=== PATIENT | female | born 1940 | race Caucasian/White ===

== ENCOUNTER 2018-06-16 19:25 | Emergency (ER) | payer OTHER ==
[2018-06-16 19:32] VITALS: TEMP 97.8; BMI 25.7
--- NOTE | 2018-06-16 20:08 | PDOC ---
Rapid Medical Evaluation Chief Complaint: Blood Pressure Problem Time Seen by Provider: 06/16/18 20:06 Medical Evaluation: Allergies Allergy/AdvReac Type Severity Reaction Status Date / Time No Known Allergies Allergy Verified 06/16/18 19:28 Vital Signs Temp Pulse Resp BP Pulse Ox 97.8 F 72 18 235/89 H 98 06/16/18 19:28 06/16/18 19:28 06/16/18 19:28 06/16/18 19:28 06/16/18 19:28 06/16/18 20:06 I have performed a brief in-person evaluation of this patient. The patient presents with a chief complaint of: elevated blood pressure today. Patient states stopped at doctor's office to have b/p checked Reports no symptoms today. Denies dizziness, shortness of breath or chest pain Pertinent physical exam findings: NAD even and unlabored breathing no pedal edema heart s1s2 I have ordered the following: ekg, iv acces, labs The patient will proceed to the ED for further evaluation. Discharge Disposition - Diagnosis Elevated blood pressure reading - Discharge Dispostion Disposition: HOME Condition at time of disposition: Good - Referrals Referrals: Lorena Oakley MD [Primary Care Provider] - - Patient Instructions - Post Discharge Activity
--- NOTE | 2018-06-16 20:21 | PDOC ---
History of Present Illness - General Chief Complaint: Blood Pressure Problem Stated Complaint: HIGH BLOOD PRESURE Time Seen by Provider: 06/16/18 20:06 History Source: Patient Exam Limitations: No Limitations - History of Present Illness Initial Comments: Pt is a 77 yo F, with PMH of hypothyroidism and HLD, who is presenting from her PCP for high blood pressure. Pt states she went to her PCP office for follow-up of her BP, when it was found to be 220s/80s. Pt has had BP elevated to 170s/80s over the prior few weeks, when she went to her PCP for a UTI, so she went to his office today to have it rechecked. She was not started on any antihypertensive medicine. Pt was treated for the UTI with 7 days of antibiotics , and she says the symptoms improved. Pt has no current complaints at this time. Pt denies any recent fevers/chills, headache, vision changes, syncope, chest pain, palpitations, SOB, nausea/vomiting, abdominal pain, urinary symptoms , diarrhea/constipation, or leg swelling. Social: Pt denies any cigarette, alcohol, or drug use. Pt denies any recent travel or sick contacts. Surgical: SBO repair. Family: no relevant history. 06/19/18 23:46 Past History - Past Medical History Allergies/Adverse Reactions: Allergies Allergy/AdvReac Type Severity Reaction Status Date / Time No Known Allergies Allergy Verified 06/16/18 19:28 Home Medications: Ambulatory Orders Hydrochlorothiazide 12.5 mg PO DAILY 5 Days #5 tablet 06/16/18 COPD: No Hypercholesterolemia: Yes - Surgical History GI Surgery: Yes - Suicide/Smoking/Psychosocial Hx Smoking History: Never smoked *Physical Exam - Vital Signs Last Vital Signs Temp Pulse Resp BP Pulse Ox 97.8 F 68 18 226/85 H 98 06/16/18 19:28 06/16/18 20:06 06/16/18 19:28 06/16/18 20:06 06/16/18 19:28 - Physical Exam Comments: Pt afebrile, HTN on arrival (220/82 RUE, 200/89 LUE), HR in 60s. Pt in NAD, normal body habitus. PE showed pt alert and oriented. advanced developer generally intact, muscular strength and sensation intact. Eyes PERRLA, EOMI. Oropharynx without erythema or exudates, no LAD b/l. No nasal congestion, hearing intact. Clear heart sounds, S1/S2, no JVD, b/l pedal edema, or heart murmur. Clear lung sounds , no respiratory distress, wheezes, crackles, or accessory muscle use. No abdominal or CVA tenderness to palpation, no rebound, no guarding. Abdomen soft , non-distended, and with normoactive bowel sounds. Skin without jaundice or rash. 06/19/18 23:48 Moderate Sedation - Procedure Monitoring Vital Signs: Procedure Monitoring Vital Signs Temperature 97.8 F 06/16/18 19:28 Pulse Rate 68 06/16/18 20:06 Respiratory Rate 18 06/16/18 19:28 Blood Pressure 226/85 H 06/16/18 20:06 O2 Sat by Pulse Oximetry (%) 98 06/16/18 19:28 ED Treatment Course - LABORATORY CBC & Chemistry Diagram: 06/16/18 20:18 06/16/18 20:18 Medical Decision Making - Medical Decision Making Pt was seen at bedside, also will be seen by attending Dr. Carr. Pt presenting from her PCP for high blood pressure. Pt states she went to her PCP office for follow-up of her BP, when it was found to be 220s/80s. Pt has had BP elevated to 170s/80s over the prior few weeks, when she went to her PCP for a UTI, so she went to his office today to have it rechecked. She was not started on any antihypertensive medicine. Pt was treated for the UTI with 7 days of antibiotics, and she says the symptoms improved. Pt has no current complaints at this time. Pt denies any recent fevers/chills, headache, vision changes, syncope, chest pain, palpitations, SOB, nausea/vomiting, abdominal pain, urinary symptoms, diarrhea/constipation, or leg swelling. Pt afebrile, HTN on arrival (220/82 RUE, 200/89 LUE), HR in 60s. Pt in NAD, normal body habitus. PE showed pt alert and oriented. advanced developer generally intact, muscular strength and sensation intact. Eyes PERRLA, EOMI. Oropharynx without erythema or exudates, no LAD b/l. No nasal congestion, hearing intact. Clear heart sounds, S1/S2, no JVD, b/l pedal edema, or heart murmur. Clear lung sounds , no respiratory distress, wheezes, crackles, or accessory muscle use. No abdominal or CVA tenderness to palpation, no rebound, no guarding. Abdomen soft , non-distended, and with normoactive bowel sounds. Skin without jaundice or rash. Considering hypertensive emergency vs asymptomatic HTN vs aortic dissection vs ACS Ordered work-up including CBC, CMP, cardiac profile, UA, chest x-ray. No interventions provided at this time, will reassess BP. Will continue to reassess pt and monitor for symptomatic improvement. ECG: NSR, RBBB. No TWIs or significant ST segment changes. No prior ECG for comparison. 06/16/18 22:15 CBC and CMP WNL Trop <.02 UA showed 3+ leuk esterase, 14 WBC, no blood. Pt was treated with abx and is asymptomatic. Will defer to PCP. Providing 12.5 HCTZ PO and will re-assess. Sending pt to chest x-ray. 06/16/18 22:17 Repeat ECG: NSR, RBBB, no widened intervals. Chest x-ray shows no acute infiltrates or cardiomegaly. Sent 5 days of 12.5 PO HCTZ to pt pharmacy. Repeat BP after HCTZ 173/78. Pt continues to be asymptomatic. Considering normal lab results and imaging, pt can be discharged to home with follow-up. Pt advised to follow-up with PCP in 1-2 days. Strict return precautions provided with pt understanding. 06/16/18 22:42 06/19/18 23:40 *DC/Admit/Observation/Transfer Diagnosis at time of Disposition: Asymptomatic hypertension - Discharge Dispostion Disposition: HOME Condition at time of disposition: Improved Decision to Admit order: No - Prescriptions Prescriptions: Hydrochlorothiazide 12.5 mg PO DAILY 5 Days #5 tablet - Referrals Referrals: Lorena Oakley MD [Primary Care Provider] - - Patient Instructions Printed Discharge Instructions: DI for High Blood Pressure Additional Instructions: You were seen in the ER today for high blood pressure. The results of your labs and imaging today were normal, and your blood pressure improved after a medication (hydrochlorothiazide 12.5 mg). Please follow-up with your primary care doctor within 1-2 days to discuss your visit and make sure your symptoms have improved. Please return to the ER if you have any worsening blood pressure , chest pain or shortness of breath, development of fevers or chills, vision changes, loss of consciousness, inability to tolerate food or fluids, or any other concerns. I have sent 5 days of the blood pressure medication to your pharmacy (12.5 mg PO HCTZ). Please take this medication as prescribed. - Post Discharge Activity
--- NOTE | 2018-06-16 20:51 | PDOC ---
Attending Attestation - HPI HPI: 06/16/18 21:59 The patient is a 77 year old female with a PMH of hypothyroidism and HLD who presents to the ER with elevated blood pressure sent in by PCP. Patient denies any symptoms at this time. Patient denies chest pain, leg swelling, shortness of breath, dizziness, lightheadedness, vision changes or urinary changes. Allergies: NKDA Surgeries: None reported. Social Hx: Denies toxic habits. - Physicial Exam PE: 06/16/18 22:02 Agree with resident's exam. <Madhuri Zhu - Last Filed: 06/16/18 22:05> - Resident Resident Name: Nelly Correa - ED Attending Attestation I have performed the following: I have examined & evaluated the patient, The case was reviewed & discussed with the resident, I agree w/resident's findings & plan - Medical Decision Making 06/16/18 22:09 77-year-old female with elevated blood pressure Patient has remained asymptomatic while in the emergency department despite systolic pressures in the 220 range She will be given a low-dose of hydrochlorothiazide, 12.5 mg and plan for discharge home if chest x-ray within normal limits EKG showed a normal sinus rhythm at 68 bpm with no acute ST elevations There is a right bundle-branch block noted with no old available for comparison <Guerda Carr - Last Filed: 06/16/18 22:10>
[2018-06-16 20:52] LABS: BASO % 0.6 % (0-2.0); EOS % 1.7 % (0-4.5); HEMOGLOBIN 13.2 GM/dL (10.7-15.3); LYMPH % 45.2 % (8-40); MCH 31.7 pg (25.7-33.7); MCHC 35.8 g/dl (32.0-36.0); MEAN CELL VOLUME 88.6 fl (80-96); MEAN PLT VOLUME 9.3 fl (7.5-11.1); MONO % 7.9 % (3.8-10.2); NEUT % 44.6 % (42.8-82.8); PLATELET COUNT 195 K/MM3 (134-434); RBC 4.17 M/mm3 (3.60-5.2); RDW 13.8 % (11.6-15.6); WHITE BLOOD COUNT 6.5 K/mm3 (4.0-10.0)
[2018-06-16 21:17] LABS: PROTHROMBIN TIME (PATIENT) 11.8 SEC (9.7-13.0)
[2018-06-16 21:20] LABS: ACTIVATED PTT 29.1 SECONDS (25.2-36.5)
[2018-06-16 21:27] LABS: ALBUMIN 4.5 g/dl (3.4-5.0); ALK PHOS 131 U/L (45-117); ANION GAP 10 MMOL/L (8-16); BILIRUBIN,TOTAL 0.8 mg/dL (0.2-1); BLOOD UREA NITROGEN 16 mg/dL (7-18); CHLORIDE 106 mmol/L (98-107); CO2 25 mmol/L (21-32); CREATININE 0.7 mg/dL (0.55-1.3); GLUCOSE,RANDOM 101 mg/dL (74-106); POTASSIUM 3.9 mmol/L (3.5-5.1); SGOT/AST 29 U/L (15-37); SGPT/ALT 30 U/L (13-61); SODIUM 140 mmol/L (136-145); TOT PROT 7.5 g/dl (6.4-8.2)
[2018-06-16 21:37] LABS: URINE APPEARANCE CLOUDY; URINE BILIRUBIN NEGATIVE (<2.0 mg/dL); URINE COLOR YELLOW; URINE GLUCOSE (UA) NEGATIVE (NEGATIVE); URINE KETONE NEGATIVE (NEGATIVE); URINE LEUK ESTERASE 3+ (NEGATIVE); URINE NITRITE NEGATIVE (NEGATIVE); URINE PROTEIN 1+ (NEGATIVE); URINE UROBILINOGEN NEGATIVE mg/dL (0.2-1.0)
[2018-06-16 21:41] LABS: EPI CELLS MODERATE /HPF (FEW); URINE MUCUS RARE
[2018-06-16] MEDS ORDERED: HYDROCHLOROTHIAZIDE 12.5 MG CAPSULE (FP) PO STA (21:42)
[2018-06-16] MEDS ORDERED: HYDROCHLOROTHIAZIDE 25 MG TABLET (FP) ONE (21:47)
[2018-06-16 21:58] VITALS: PULSE 82
[2018-06-16 22:59] VITALS: BP 178/73
--- NOTE | 2018-06-17 10:48 | EKG ---
Test Reason : Blood Pressure : / mmHG Vent. Rate : 057 BPM Atrial Rate : 057 BPM P-R Int : 166 ms QRS Dur : 130 ms QT Int : 456 ms P-R-T Axes : -02 004 010 degrees QTc Int : 443 ms SINUS BRADYCARDIA RIGHT BUNDLE BRANCH BLOCK ABNORMAL ECG Confirmed by Pierre Gregg MD ([id number]) on 06/17/2018 10:48:05 AM Referred By: Confirmed By:Pierre Gregg MD
--- NOTE | 2018-06-17 10:49 | EKG ---
Test Reason : Blood Pressure : / mmHG Vent. Rate : 068 BPM Atrial Rate : 277 BPM P-R Int : 000 ms QRS Dur : 134 ms QT Int : 422 ms P-R-T Axes : 000 049 048 degrees QTc Int : 448 ms NORMAL SINUS RHYTHM RIGHT BUNDLE BRANCH BLOCK ABNORMAL ECG Confirmed by Pierre Gregg MD ([id number]) on 06/17/2018 10:49:39 AM Referred By: Confirmed By:Pierre Gregg MD
== END 2018-06-16 22:59 | disposition home or self-care (01) ==
LOC: JER 19:25
DX: I10 Essential (primary) hypertension (principal); E78.5 Hyperlipidemia, unspecified; E03.9 Hypothyroidism, unspecified
CPT/HCPCS: 36415; 71046-TC-FY; 80053; 81003; 81015; 82550; 84484; 85025; 85610; 85730; 93005; 93010; 99283-25

== ENCOUNTER 2019-04-08 06:46 | Day surgery (SDC) | payer OTHER ==
[2019-04-07 15:43] VITALS: BMI 25.6
[2019-04-08] MEDS ORDERED: ACETAMINOPHEN 1000 MG/100 ML VIAL (NON FORMULARY) IVPB ONE ×2 (09:27→12:00)
[2019-04-08] MEDS ORDERED: IBUPROFEN 800 MG/8 ML IJ IVPB SCH (09:30)
[2019-04-08] MEDS ORDERED: DEXTROSE 5%-0.45% SALINE 1,000 ML IV SCH (09:30)
--- NOTE | 2019-04-08 09:30 | HP ---
History & Physical Update - History History: No Change - Physical Physical: No Change - Assessment Assessment: No Change - Plan Plan: No Change (04/07/19)
[2019-04-08] MEDS ORDERED: ONDANSETRON 4 MG/2 ML VIAL IVPUSH PRN (09:34)
[2019-04-08] MEDS ORDERED: oxyCODONE HCL 5 MG TABLET PO PRN (09:34)
[2019-04-08] MEDS ORDERED: LACTATED RINGERS SOLUTION 1,000 ML IV SCH (09:45)
[2019-04-08] MEDS ORDERED: LIDOCAINE HCL/PF 2% SDV 5ML VIAL ONE (09:53)
[2019-04-08] MEDS ORDERED: PROPOFOL 20 ML ONE (09:54)
[2019-04-08] MEDS ORDERED: ceFAZolin SODIUM 1 GM VIAL ONE (10:09)
[2019-04-08] MEDS ORDERED: ceFAZolin SODIUM 1 GM VIAL IVPB ONE (10:10)
[2019-04-08] MEDS ORDERED: DEXAMETHASONE SOD PHOSPHATE 4 MG/1 ML VIAL ONE (10:14)
[2019-04-08] MEDS ORDERED: VASOPRESSIN 20 UNITS/ML VIAL IV ONE (10:14)
[2019-04-08] MEDS ORDERED: ACETAMINOPHEN INJECTION 100 ML IVPB ONE (11:29)
[2019-04-08] MEDS ORDERED: IBUPROFEN 800 MG/8 ML IJ IVPB ONE ×2 (12:20→12:21)
[2019-04-08 13:09] VITALS: TEMP 97.2
[2019-04-08 15:44] VITALS: BP 141/65; PULSE 67
--- NOTE | 2019-04-10 16:47 | PATH ---
Surgical Pathology Report Patient Name: HOME REEVES [facility]. Rec. #: [id number] /Age/Gender: 1940 (Age: 78) / F Account: [id number] Location: [facility] SURGICAL Taken: 04/08/2019 Received: 04/08/2019 Reported: 04/10/2019 Physicians: Jerrell Alfredo M.D. Specimen(s) Received ANTERIOR VAGINAL MUCOSA Clinical History Cystocele, stress incontinence Final Diagnosis ANTERIOR VAGINAL MUCOSA, CYSTOCELE REPAIR: VAGINAL SQUAMOUS MUCOSA WITHOUT SIGNIFICANT PATHOLOGIC FINDINGS. Electronically Signed Kecia Boone M.D. Gross Description Received in formalin labeled "anterior vaginal mucosa," is a 7.0 x 2.3 x 0.3 cm chan portion of mucosal tissue, consistent with vaginal mucosa. [employer] sections are submitted in one cassette. /04/09/2019 saudi04/09/2019
--- NOTE | 2019-05-20 20:25 | OP ---
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 PROCEDURE: Cystocele repair and sling placement and cystoscopy. SURGEON: Jerrell Alfredo MD. ANESTHESIA: General anesthesia. ESTIMATED BLOOD LOSS: 50 mL. DRAINS: Fraga catheter. PREOPERATIVE INDICATION: The patient has a grade 3 cystocele as well as hypermobile urethra. She comes to the OR today for repair. DESCRIPTION OF PROCEDURE: The patient was brought to the OR, placed on the table in the supine position. Given general anesthesia and IV antibiotics and placed in the modified lithotomy position. The groin was prepped and draped sterilely. Weighted speculum was placed in the posterior aspect of the vagina. A Fraga catheter was placed. Pitressin was injected underneath the vaginal mucosa overlying the bladder in the midline. Incision was made in the midline overlying the bladder, and the vaginal mucosa was sharply and bluntly dissected off the perivesical tissues in a lateral fashion. The excess posterior vaginal mucosa was incised. The prolapse appeared in 4 layers. 3-0 Vicryl suture was used in a pursestring fashion to repair the central defect. Then 0 Vicryl sutures were used to repair the lateral defects, and then 2 more layers of closure with 2-0 Vicryl suture. Cystoscopy was then performed, no evidence of perforation in the bladder, no evidence of suture was seen as both ureters had clear efflux. Pitressin was then injected over the vaginal mucosa over the urethra in the midline at the middle 3rd of the urethra. Incision was then made, and the vaginal mucosa sharply dissected off the periurethral tissues in a lateral fashion. The bladder was emptied and using trocars, a mini sling was applied under fingertip control. At this time, the trocars were placed into vaginal mucosa, and then rotated laterally towards the obturator canal. Cystoscopy was then performed with no evidence of perforation was seen. The sling was then tightened appropriately and the tightening suture was removed. The mucosa was then closed with 2-0 Vicryl suture as well. Vaginal packing was left in place along with the Fraga catheter. The patient was woken up. JERRELL ALFREDO M.D. [id number]
== END 2019-04-08 15:47 | disposition home or self-care (01) ==
LOC: JASU-SURG 06:46
PROVIDERS: ATTEND Urology
PROC: 0JQC0ZZ Repair Pelvic Region Subcutaneous Tissue and Fascia, Open Approach (ICD-10-PCS; principal; 2019-04-08 09:00)
PROC: 0TSD0ZZ Reposition Urethra, Open Approach (ICD-10-PCS; 2019-04-08 09:00)
DX: N81.10 Cystocele, unspecified (principal); N39.3 Stress incontinence (female) (male); N36.41 Hypermobility of urethra
CPT/HCPCS: 57240; 57288; C1762; 88302-TC; 94760; J0131